=== PATIENT | male | born 1940 | race Caucasian/White ===

== ENCOUNTER 2018-03-14 13:24 | Emergency (ER) | payer MEDICARE ==
[2018-03-14 13:48] LABS: NUCLEATED RED BLOOD CELLS 0.1 % (0.0-0.19)
[2018-03-14 13:58] LABS: CREATININE 1.2 mg/dL (0.5-1.5); POTASSIUM 3.5 mmol/L (3.5-5.1)
[2018-03-14 14:22] LABS: APPEARANCE,URINE Clear (CLEAR); BILIRUBIN,URINE Negative (NEGATIVE); COLOR,URINE Yellow (YELLOW); GLUCOSE, URINE (UA) Negative (NEGATIVE); KETONES,URINE Trace mg/dL (NEGATIVE); LEUKOCYTE ESTERASE ,URINE Negative (NEGATIVE); NITRATE,URINE Negative (NEGATIVE); OCCULT BLOOD,URINE Moderate (NEGATIVE); PH,URINE 5.5 (5.0-8.0); PROTEIN,URINE Negative (NEGATIVE); UROBILINOGEN,URINE 0.2 mg/dL (0.2-1.0)
[2018-03-14 14:37] LABS: BASOPHILS % (AUTO) 0.2 % (0.0-5.0); EOSINOPHILS % (AUTO) 0.2 % (0.0-8.0); HEMATOCRIT 40.7 % (42-54); LYMPHOCYTES % (AUTO) 24.2 % (21.0-51.0); MEAN CORPUSCULAR HEMOGLOBIN 30.4 pg (27.0-33.0); MEAN CORPUSCULAR HGB CONC 33.6 g/dL (32.0-36.0); MEAN CORPUSCULAR VOLUME 90.6 fL (79-99); MONOCYTES % (AUTO) 7.7 % (3.0-13.0); NEUTROPHILS % (AUTO) 67.7 % (40.0-77.0); PLATELET COUNT (AUTO) 252 K/uL (130-400); RED BLOOD CELL COUNT(AUTO) 4.49 MIL/uL (4.50-6.20); RED CELL DISTRIBUTION WIDTH 11.6 % (11.0-15.5); WHITE BLOOD COUNT (AUTO) 7.9 K/uL (4.8-10.8)
[2018-03-14 15:06] LABS: BACTERIA,URINE Rare /HPF (None Seen); SQUAMOUS EPITHELIAL CELL,UR Few /HPF (0-2); WBC,URINE 0-1 /HPF (0-1)
[2018-03-14] MEDS ORDERED: CEPHALEXIN 500 MG CAPSULE ONE (15:10)
== END 2018-03-14 15:48 | disposition home or self-care (01) ==
LOC: EDH 13:24
DX: N39.0 Urinary tract infection, site not specified (principal); I10 Essential (primary) hypertension; Z98.890 Other specified postprocedural states
CPT/HCPCS: 36415; 51701; 80048; 81001; 85025; 87088

== ENCOUNTER 2018-03-15 06:38 | Emergency (ER) | payer MEDICARE ==
[2018-03-15 07:04] LABS: BASOPHILS % (AUTO) 0.2 % (0.0-5.0); EOSINOPHILS % (AUTO) 0.2 % (0.0-8.0); HEMATOCRIT 39.9 % (42-54); LYMPHOCYTES % (AUTO) 18.2 % (21.0-51.0); MEAN CORPUSCULAR HEMOGLOBIN 31.6 pg (27.0-33.0); MEAN CORPUSCULAR VOLUME 87.7 fL (79-99); MONOCYTES % (AUTO) 7.7 % (3.0-13.0); NEUTROPHILS % (AUTO) 73.7 % (40.0-77.0); PLATELET COUNT (AUTO) 282 K/uL (130-400); RED BLOOD CELL COUNT(AUTO) 4.55 MIL/uL (4.50-6.20); RED CELL DISTRIBUTION WIDTH 11.8 % (11.0-15.5); WHITE BLOOD COUNT (AUTO) 8.9 K/uL (4.8-10.8)
[2018-03-15 07:20] LABS: INR 1.01 (0.85-1.15); PROTHROMBIN TIME 10.6 SEC (9.6-11.6)
[2018-03-15 07:35] LABS: ALBUMIN 3.3 g/dL (3.5-5.0); CREATININE 1.1 mg/dL (0.5-1.5); POTASSIUM 3.7 mmol/L (3.5-5.1); TOTAL PROTEIN, SERUM 7.7 g/dL (6.0-8.3)
[2018-03-15 07:36] LABS: APPEARANCE,URINE CLEAR (CLEAR); BILIRUBIN,URINE NEGATIVE (NEGATIVE); COLOR,URINE YELLOW (YELLOW); GLUCOSE, URINE (UA) NEGATIVE (NEGATIVE); KETONES,URINE NEGATIVE (NEGATIVE); LEUKOCYTE ESTERASE ,URINE NEGATIVE (NEGATIVE); NITRATE,URINE NEGATIVE (NEGATIVE); OCCULT BLOOD,URINE MODERATE (NEGATIVE); PH,URINE 6.5 (5.0-8.0); PROTEIN,URINE NEGATIVE (NEGATIVE); UROBILINOGEN,URINE 0.2 mg/dL (0.2-1.0)
[2018-03-15 08:41] LABS: BACTERIA,URINE Rare /HPF (None Seen); SQUAMOUS EPITHELIAL CELL,UR Rare /HPF (0-2); WBC,URINE 0-1 /HPF (0-1)
== END 2018-03-15 07:42 | disposition home or self-care (01) ==
LOC: EDH 06:38
DX: R33.9 Retention of urine, unspecified (principal); R10.31 Right lower quadrant pain; R10.32 Left lower quadrant pain; I10 Essential (primary) hypertension; Z87.891 Personal history of nicotine dependence; Z98.890 Other specified postprocedural states
CPT/HCPCS: 36415; 51702; 80053; 83605; 85025; 85610; 85730